=== PATIENT | female | born 1990 | race African-American/Black ===

== ENCOUNTER 2017-06-03 07:50 | Emergency (ER) | payer OTHER ==
[2017-06-03 07:55] VITALS: TEMP 98.4; BMI 37.3
[2017-06-03] MEDS ORDERED: ONDANSETRON 4 MG/2 ML VIAL IVPB ONE (08:13)
[2017-06-03] MEDS ORDERED: FAMOTIDINE 20 MG/50 ML IVPB 50 ML IVPB ONE ×2 (08:13→08:18)
[2017-06-03] MEDS ORDERED: SODIUM CHLORIDE 1,000 ML IV STA (08:13)
[2017-06-03] MEDS ORDERED: MAG HYDROX/AL HYDROX/SIMETH 30 ML UNIT-DOSE CUP PO ONE (08:13)
[2017-06-03] MEDS ORDERED: MAG HYDROX/AL HYDROX/SIMETH 30 ML UNIT-DOSE CUP ONE (08:17)
[2017-06-03] MEDS ORDERED: ONDANSETRON 4 MG/2 ML VIAL ONE (08:17)
--- NOTE | 2017-06-03 08:35 | PDOC ---
History of Present Illness <DavidEloina - Last Filed: 06/03/17 10:50> - History of Present Illness Initial Comments: 06/03/17 08:35 "The patient is a 26 year old female with past medical history of H. Pylori and GERD, who presents to the emergency department complaining of epigastric pain since last night. Patient states that pain she is experiencing is the same pain she had from her H. Pylori. She describes the pain as non-radiating, epigastric. Denies N/V. Denies F/C. Denies diarrhea/constipation. Pt states that she is currently taking an antacid for GERD, but it did not help this morning. Denies CP/SOB. She denies vaginal discharge or bleeding. She denies recent dysuria, frequency, urgency or hematuria. Pt denies any prior surgical history. Allergies: NKA " <Conor Liz - Last Filed: 06/03/17 11:01> - General Chief Complaint: Pain Stated Complaint: STOMACH PAIN Time Seen by Provider: 06/03/17 08:04 Past History <Eloina Hernandez - Last Filed: 06/03/17 10:50> - Past Medical History Anemia: No Asthma: No Cancer: No Cardiac Disorders: No Diabetes: No GI Disorders: Yes (H PYLORI) HTN: No Seizures: No Thyroid Disease: No - Immunization History Immunization Up to Date: Yes - Psycho/Social/Smoking Cessation Hx Anxiety: No Suicidal Ideation: No Smoking History: Never smoked Have you smoked in the past 12 months: No Hx Alcohol Use: Yes (social) Drug/Substance Use Hx: No Substance Use Type: None Hx Substance Use Treatment: No <Conor Liz - Last Filed: 06/03/17 11:01> - Past Medical History Allergies/Adverse Reactions: Allergies Allergy/AdvReac Type Severity Reaction Status Date / Time No Known Allergies Allergy Verified 06/03/17 07:54 Home Medications: Ambulatory Orders Ferrous Sulfate [Feosol] 325 mg PO DAILY 08/06/16 Famotidine [Pepcid -] 40 mg PO DAILY 06/03/17 Review of Systems - Review of Systems Comments:: 06/03/17 08:38 "GENERAL/CONSTITUTIONAL: +chills. No weakness. HEAD, EYES, EARS, NOSE AND THROAT: No change in vision. No ear pain or discharge. No sore throat. CARDIOVASCULAR: No chest pain RESPIRATORY: No cough, wheezing, or hemoptysis. GASTROINTESTINAL: +abdominal pain. No nausea, vomiting, diarrhea or constipation. GENITOURINARY: No dysuria, frequency, or change in urination. MUSCULOSKELETAL:No joint or muscle swelling or pain. No neck pain. SKIN: No rash NEUROLOGIC: No headache, vertigo, loss of consciousness, or change in strength/ sensation. ENDOCRINE: No increased thirst. No abnormal weight change. HEMATOLOGIC/LYMPHATIC: No anemia, easy bleeding, or history of blood clots. ALLERGIC/IMMUNOLOGIC: No hives or skin allergy." <Conor Liz - Last Filed: 06/03/17 11:01> *Physical Exam - Vital Signs Last Vital Signs Temp Pulse Resp BP Pulse Ox 98.4 F 106 H 22 151/91 100 06/03/17 07:51 06/03/17 07:51 06/03/17 07:51 06/03/17 07:51 06/03/17 07:51 <Eloina Hernandez - Last Filed: 06/03/17 10:50> - Vital Signs Last Vital Signs Temp Pulse Resp BP Pulse Ox 98.4 F 106 H 22 151/91 100 06/03/17 07:51 06/03/17 07:51 06/03/17 07:51 06/03/17 07:51 06/03/17 07:51 - Physical Exam Comments: 06/03/17 08:38 "GENERAL: Awake, alert, and fully oriented, in no acute distress HEAD: No signs of trauma EYES: PERRLA, EOMI, sclera anicteric, conjunctiva clear ENT: Auricles normal inspection, hearing grossly normal, nares patent, oropharynx clear without exudates. Moist mucosa NECK: Normal ROM, supple, no lymphadenopathy, JVD, or masses LUNGS: Breath sounds equal, clear to auscultation bilaterally. No wheezes, and no crackles HEART: Regular rate and rhythm, normal S1 and S2, no murmurs, rubs or gallops ABDOMEN: Epigastric TTP + RUQ TTP. Soft, normoactive bowel sounds. No guarding , no rebound. No masses EXTREMITIES: Normal range of motion, no edema. No clubbing or cyanosis. No cords, erythema, or tenderness NEUROLOGICAL: Cranial nerves II through XII grossly intact. Normal speech, normal gait SKIN: Warm, Dry, normal turgor, no rashes or lesions noted. " <Conor Liz - Last Filed: 06/03/17 11:01> ED Treatment Course - LABORATORY CBC & Chemistry Diagram: 06/03/17 08:45 06/03/17 08:45 - ADDITIONAL ORDERS Additional order review: Laboratory Results 06/03/17 06/03/17 06/03/17 08:45 08:40 08:40 Sodium 136 Potassium 4.0 Chloride 101 Carbon Dioxide 26 Anion Gap 9 BUN 18 D Creatinine 0.7 Creat Clearance w eGFR > 60 Random Glucose 100 Calcium 8.9 Total Bilirubin 0.4 AST 39 H ALT 26 Alkaline Phosphatase 81 Creatine Kinase Troponin I Total Protein 7.7 Albumin 3.8 Lipase 180 Urine Color Ltyellow Urine Appearance Slcloudy Urine pH 6.0 Urine Protein Negative Urine Glucose (UA) Negative Urine Ketones Negative Urine Blood Negative Urine Nitrite Negative Urine Bilirubin Negative Urine Urobilinogen Negative Urine HCG, Qual Negative 06/03/17 08:40 Sodium Potassium Chloride Carbon Dioxide Anion Gap BUN Creatinine Creat Clearance w eGFR Random Glucose Calcium Total Bilirubin AST ALT Alkaline Phosphatase Creatine Kinase 127 Troponin I < 0.02 Total Protein Albumin Lipase Urine Color Urine Appearance Urine pH Urine Protein Urine Glucose (UA) Urine Ketones Urine Blood Urine Nitrite Urine Bilirubin Urine Urobilinogen Urine HCG, Qual 06/03/17 08:45 RBC 4.90 MCV 81.2 MCHC 31.4 L RDW 13.6 MPV 9.4 Neutrophils % 56.8 Lymphocytes % 34.3 D Monocytes % 6.7 Eosinophils % 1.8 D Basophils % 0.4 - RADIOLOGY Radiograph Interpretation: 06/03/17 10:51 Chest X-Ray 2 views (PA & LAT) Impression: No evidence of active pulmonary disease Reported By: Chase Awan MD Abdomen Ultrasound Impression:Cholelithiasis and mild diffuse fatty infiltration of the liver. Reported by: Abdifatah Amado MD - Medications Given in the ED: ED Medications Discontinued Medications Generic Name Dose Route Start Last Admin Trade Name Freq PRN Reason Stop Dose Admin Al Hydroxide/Mg Hydroxide 30 ml 06/03/17 08:13 06/03/17 08:40 Mylanta Oral Suspension - PO 06/03/17 08:14 30 ml ONCE ONE Administration Famotidine/Sodium Chloride 50 mls @ 100 mls/hr 06/03/17 08:13 06/03/17 08:40 Pepcid 20 Mg Premixed Ivpb - IVPB 06/03/17 08:42 100 mls/hr ONCE ONE Administration Sodium Chloride 1,000 mls @ 1,000 mls/hr 06/03/17 08:13 06/03/17 08:40 Normal Saline - IV 06/03/17 09:12 1,000 mls/hr ASDIR STA Administration Ondansetron HCl 4 mg 06/03/17 08:13 06/03/17 08:40 Zofran Injection IVPB 06/03/17 08:14 4 mg ONCE ONE Administration <Eloina Hernandez - Last Filed: 06/03/17 10:50> - LABORATORY CBC & Chemistry Diagram: 06/03/17 08:45 06/03/17 08:45 - RADIOLOGY Radiology Studies Ordered: Category Date Time Status CHEST PA & LAT [RAD] Stat Radiology 06/03/17 08:11 Ordered ABDOMEN US [US] Stat Ultrasound 06/03/17 08:12 Ordered <Conor Liz - Last Filed: 06/03/17 11:01> Medical Decision Making - Medical Decision Making 06/03/17 08:42 26 F with epigastric pain. Likely PUD vs gastritis. Pt with mild RUQ tenderness as well. Will eval for mik. - Labs, lipase - RUQ sono - CXR - IVF, gi cocktail 06/03/17 10:57 Pt reassessed s/p GI cocktail - now reports pain is significantly better. Labs unremarkable. RUQ sono shows gallstones with no evidence of cholecystitis. Pt with no abdominal tenderness at this time, no fevers, normal LFTs. Tolerating PO. Clinically stable for DC at this time. <Conor Liz - Last Filed: 06/03/17 11:01> *DC/Admit/Observation/Transfer - Attestations Scribe Attestion: 06/03/17 10:45 Documentation prepared by Eloina Hernandez, acting as medical scientific officer for Conor Liz MD <Eloina Hernandez - Last Filed: 06/03/17 10:50> - Attestations Physician Attestion: 06/03/17 11:01 I, Dr. Conor Liz MD, attest that this document has been prepared under my direction and personally reviewed by me in its entirety. I further attest, that it accurately reflects all work, treatment, procedures and medical decision -making performed by me. <Conor Liz - Last Filed: 06/03/17 11:01> Diagnosis at time of Disposition: Epigastric pain - Discharge Dispostion Disposition: HOME Condition at time of disposition: Good - Referrals Referrals: Gamaliel Benitez MD [Staff Physician] - - Patient Instructions Printed Discharge Instructions: DI for Gallstones, DI for Peptic Ulcer Additional Instructions: Your abdominal pain was likely due to peptic ulcers. Your ultrasound showed gallstones, which could also potentially be causing your abdominal pain. You will need to follow up with your window decorator to have your gallstones further evaluated and treated. If left untreated, these may lead to infections and severe pain in the future. Print Language: YAKUT - Post Discharge Activity Work/School Note: Back to Work
[2017-06-03 08:55] LABS: BASOPHIL 0.4 % (0-2.0); EOSINOPHIL 1.8 % (0-4.5); MCH 25.5 pg (25.7-33.7); MCHC 31.4 g/dl (32.0-36.0); MEAN CELL VOLUME 81.2 fl (80-96); MEAN PLT VOLUME 9.4 fl (7.5-11.1); NEUTROPHILS 56.8 % (42.8-82.8); PLATELET COUNT 272 K/MM3 (134-434); RDW 13.6 % (11.6-15.6); WHITE BLOOD COUNT 9.3 K/mm3 (4.0-10.0)
[2017-06-03 08:57] LABS: URINE APPEARANCE SLCLOUDY; URINE BILIRUBIN NEGATIVE (NEGATIVE); URINE BLOOD NEGATIVE (NEGATIVE); URINE COLOR LTYELLOW; URINE GLUCOSE (UA) NEGATIVE (NEGATIVE); URINE KETONE NEGATIVE (NEGATIVE); URINE LEUK ESTERASE NEGATIVE (NEGATIVE); URINE NITRITE NEGATIVE (NEGATIVE); URINE PROTEIN NEGATIVE (NEGATIVE); URINE UROBILINOGEN NEGATIVE mg/dL (0.2-1.0)
[2017-06-03 09:19] LABS: ALBUMIN 3.8 g/dl (3.4-5.0); ALK PHOS 81 U/L (45-117); ANION GAP 9 (8-16); BILIRUBIN,TOTAL 0.4 mg/dL (0.2-1.0); CALCIUM 8.9 mg/dL (8.5-10.1); CO2 26 mmol/L (21-32); CREATININE 0.7 mg/dL (0.55-1.02); GLUCOSE,RANDOM 100 mg/dL (74-106); SGOT/AST 39 U/L (15-37); SGPT/ALT 26 U/L (12-78); TOT PROT 7.7 g/dl (6.4-8.2)
[2017-06-03 09:21] LABS: CPK 127 IU/L (26-192); TROPONIN I < 0.02 ng/ml (0.00-0.05)
[2017-06-03 12:00] VITALS: BP 120/46; PULSE 81
== END 2017-06-03 11:29 | disposition home or self-care (01) ==
LOC: JER 07:50
PROC: 3E033GC Introduction of Other Therapeutic Substance into Peripheral Vein, Percutaneous Approach (ICD-10-PCS; principal; 2017-06-03)
PROC: 3E033GC Introduction of Other Therapeutic Substance into Peripheral Vein, Percutaneous Approach (ICD-10-PCS; 2017-06-03)
DX: K80.20 Calculus of gallbladder without cholecystitis without obstruction (principal)
CPT/HCPCS: 36415; 71020-TC; 76700-TC; 80053; 81003; 83690; 84484; 84703; 85025; 96365; 96375; 99283-25

== ENCOUNTER 2018-05-27 05:51 | Emergency (ER) | payer OTHER ==
--- NOTE | 2018-05-27 06:00 | PDOC ---
History of Present Illness - General Chief Complaint: Pain Stated Complaint: ABD PAIN Time Seen by Provider: 05/27/18 05:55 History Source: Patient - History of Present Illness Initial Comments: 05/27/18 06:32 27 year old female with history of gastritis, H-Pylori, cholethiasis c/o severe epigastric and RUQ pain since 1 am. patient reports that prior to that she had fried chicken for dinner, ibuprofen for back pain. patient is also currently take flagyl for BV. patient reports that abdominal cramping has not imporved despite drinking tea. denies chest pain, diaphoresis, urinary symptoms 05/28/18 15:02 Past History - Past Medical History Allergies/Adverse Reactions: Allergies Allergy/AdvReac Type Severity Reaction Status Date / Time No Known Allergies Allergy Verified 06/03/17 07:54 Home Medications: Ambulatory Orders Ibuprofen [Motrin -] 400 mg PO PRN PRN 05/27/18 Pantoprazole Sodium 40 mg PO DAILY 05/27/18 Tramadol HCl 50 mg PO Q6H #10 tablet MDD 4 05/27/18 metroNIDAZOLE [Flagyl -] 500 mg PO DAILY 05/27/18 Anemia: No Asthma: No Cancer: No Cardiac Disorders: No Diabetes: No GI Disorders: Yes (H PYLORI) HTN: No Seizures: No Thyroid Disease: No - Immunization History Immunization Up to Date: Yes - Suicide/Smoking/Psychosocial Hx Smoking History: Never smoked Have you smoked in the past 12 months: No Hx Alcohol Use: Yes (social) Drug/Substance Use Hx: No Substance Use Type: None Hx Substance Use Treatment: No Review of Systems - Review of Systems Able to Perform ROS?: Yes Is the patient limited Romansh proficient: No Constitutional: No: Symptoms Reported, See HPI, Chills, Diaphoresis, Fever, Loss of Appetite, Malaise, Night Sweats, Weakness, Weight Stable, Unintentional Wgt. Loss, Unexplained wgt Loss, Other HEENTM: No: Symptoms Reported, See HPI, Eye Pain, Blurred Vision, Tearing, Recent change in vision, Double Vision, Cataracts, Ear Pain, Ocular Prothesis, Ear Discharge, Nose Pain, Nose Congestion, Tinnitus, Nose Bleeding, Hearing Loss , Throat Pain, Throat Swelling, Mouth Pain, Dental Problems, Difficulty Swallowing, Mouth Swelling, Other Cardiac (ROS): No: Symptoms Reported, See HPI, Chest Pain, Edema, Irregular Heart Rate, Lightheadedness, Palpitations, Syncope, Chest Tightness, Other ABD/GI: Yes: Nausea, Vomiting, Abdominal cramping : No: Symptoms Reported, See HPI, Burning, Dysuria, Discharge, Frequency, Flank Pain, Hematuria, Incontinence, Pain, Urgency, Testicular Mass, Testicular Swelling, Lesions, Testicular Pain, Other *Physical Exam - Vital Signs 05/27/18 06:58 Last Vital Signs Temp Pulse Resp BP Pulse Ox 97.2 F L 90 19 125/93 100 05/27/18 05:52 05/27/18 05:52 05/27/18 05:52 05/27/18 05:52 05/27/18 05:52 - Physical Exam General Appearance: Yes: Mild Distress Respiratory/Chest: positive: Lungs Clear, Normal Breath Sounds Gastrointestinal/Abdominal: positive: Normal Bowel Sounds, Tender, Soft Neurologic: positive: Fully Oriented, Alert, Normal Mood/Affect ED Treatment Course - LABORATORY CBC & Chemistry Diagram: 05/27/18 06:36 05/27/18 06:36 Progress Note - Progress Note Progress Note: A: epigastric pain P; labs US pending all results. patient signed out to Mikaela WITT *DC/Admit/Observation/Transfer Diagnosis at time of Disposition: Epigastric pain, Biliary colic, Abnormal LFTs - Discharge Dispostion Disposition: HOME Condition at time of disposition: Stable - Prescriptions Prescriptions: Tramadol HCl 50 mg PO Q6H #10 tablet MDD 4 - Referrals Referrals: Yessenia Sarabia [Primary Care Provider] - - Patient Instructions Printed Discharge Instructions: DI for Gallstones Additional Instructions: -Avoid fatty/greasy foods -Take Tramadol if needed for severe pain -Follow up with your primary care doctor on Thursday as scheduled -Return for fever (temperature over 100.4), vomiting, uncontrolled pain, or any other concerning symptoms - Post Discharge Activity Forms/Work/School Notes: Back to Work
[2018-05-27] MEDS ORDERED: ONDANSETRON *ODT* 4 MG TABLET SL ONE (06:01)
[2018-05-27 06:08] VITALS: BMI 36.2
[2018-05-27] MEDS ORDERED: SODIUM CHLORIDE 1,000 ML IV STA (06:15)
[2018-05-27] MEDS ORDERED: ONDANSETRON 4 MG/2 ML VIAL IVPUSH ONE (06:15)
[2018-05-27] MEDS ORDERED: ACETAMINOPHEN 1000 MG/100 ML VIAL (NON FORMULARY) IVPB ONE (06:18)
[2018-05-27] MEDS ORDERED: FAMOTIDINE 20 MG/50 ML IVPB 20 MG/50 ML MG IVPB ONE ×2 (06:18→06:28)
--- NOTE | 2018-05-27 06:21 | PDOC ---
*Physical Exam - Vital Signs Last Vital Signs Temp Pulse Resp BP Pulse Ox 97.2 F L 90 19 125/93 100 05/27/18 05:52 05/27/18 05:52 05/27/18 05:52 05/27/18 05:52 05/27/18 05:52 - Physical Exam Comments: 05/27/18 06:19 Vital signs within normal limits No jaundice or pallor Mild distress secondary to abdominal pain Abdomen is soft/nondistended. Tender with guarding in the epigastric and right upper quadrant, no rebound. Bowel sounds are within normal limits. No CVA tenderness Medical Decision Making - Medical Decision Making 05/27/18 06:19 Patient seen and evaluated with the nurse practitioner. I agree with the overall evaluation, assessment, and management with the following summary of visit: 27-year-old female with history of GERD/dyspepsia and gallstones diagnosed on ultrasound in 2017 presents with progressive upper abdominal pain since 1 AM, associated with 1 episode of nonbloody nonbilious emesis. Last meal was last night, had chicken and also had a dose of ibuprofen. She is currently taking Flagyl as treatment for a, otherwise no changes in her medications. Denies any recent alcohol intake. Exam as noted with epigastric and right upper quadrant tenderness with guarding 27-year-old female with upper abdominal pain and nausea/vomiting. Has history of dyspepsia/GERD and gallstones, rule out acute biliary colic versus gastritis. No evidence for cardiopulmonary process. Labs, urinalysis IV fluids, pain control, nausea control Right upper quadrant ultrasound Reassess and disposition accordingly *DC/Admit/Observation/Transfer Diagnosis at time of Disposition: Epigastric pain - Referrals - Patient Instructions - Post Discharge Activity
[2018-05-27] MEDS ORDERED: ACETAMINOPHEN INJECTION 100 ML IVPB ONE (06:28)
[2018-05-27] MEDS ORDERED: ONDANSETRON 4 MG/2 ML VIAL ONE (06:28)
[2018-05-27] MEDS ORDERED: morphine CARPU-JECT 4 MG/1 ML DISP.SYRIN IVPUSH ONE (06:30)
[2018-05-27] MEDS ORDERED: morphine SULFATE 4 MG/ML VIAL ONE (06:42)
[2018-05-27 06:51] LABS: BASO % 0.2 % (0-2.0); EOS % 0.3 % (0-4.5); HEMATOCRIT 37.1 % (32.4-45.2); HEMOGLOBIN 11.6 GM/dL (10.7-15.3); LYMPH % 16.5 % (8-40); MCH 25.3 pg (25.7-33.7); MCHC 31.1 g/dl (32.0-36.0); MEAN CELL VOLUME 81.3 fl (80-96); MEAN PLT VOLUME 9.4 fl (7.5-11.1); MONO % 8.7 % (3.8-10.2); NEUT % 74.3 % (42.8-82.8); PLATELET COUNT 240 K/MM3 (134-434); RBC 4.56 M/mm3 (3.60-5.2); RDW 14.3 % (11.6-15.6); WHITE BLOOD COUNT 9.8 K/mm3 (4.0-10.0)
[2018-05-27 07:07] LABS: ALBUMIN 3.6 g/dl (3.4-5.0); ALK PHOS 86 U/L (45-117); AMYLASE 65 U/L (25-115); ANION GAP 9 MMOL/L (8-16); BILIRUBIN,TOTAL 0.6 mg/dL (0.2-1.0); BLOOD UREA NITROGEN 17 mg/dL (7-18); CALCIUM 9.1 mg/dL (8.5-10.1); CHLORIDE 102 mmol/L (98-107); CO2 28 mmol/L (21-32); CREATININE 0.8 mg/dL (0.55-1.02); GLUCOSE,RANDOM 111 mg/dL (74-106); POTASSIUM 4.2 mmol/L (3.5-5.1); SGOT/AST 203 U/L (15-37); SGPT/ALT 91 U/L (12-78); SODIUM 139 mmol/L (136-145); TOT PROT 7.5 g/dl (6.4-8.2)
--- NOTE | 2018-05-27 07:20 | PDOC ---
*Physical Exam - Vital Signs Last Vital Signs Temp Pulse Resp BP Pulse Ox 97.2 F L 90 19 125/93 100 05/27/18 05:52 05/27/18 05:52 05/27/18 05:52 05/27/18 05:52 05/27/18 05:52 ED Treatment Course - LABORATORY CBC & Chemistry Diagram: 05/27/18 06:36 05/27/18 06:36 - ADDITIONAL ORDERS Additional order review: 05/27/18 06:36 RBC 4.56 MCV 81.3 MCHC 31.1 L RDW 14.3 MPV 9.4 Neutrophils % 74.3 D Lymphocytes % 16.5 D Monocytes % 8.7 Eosinophils % 0.3 D Basophils % 0.2 - Medications Given in the ED: ED Medications Discontinued Medications Generic Name Dose Route Start Last Admin Trade Name Freq PRN Reason Stop Dose Admin Acetaminophen 1,000 mg 05/27/18 06:18 05/27/18 06:35 Ofirmev Injection - IVPB 05/27/18 06:19 1,000 mg ONCE ONE Administration Sodium Chloride 1,000 mls @ 1,000 mls/hr 05/27/18 06:15 05/27/18 06:46 Normal Saline - IV 05/27/18 07:14 1,000 mls/hr ASDIR STA Administration Famotidine/Sodium Chloride 20 mg in 50 mls @ 100 mls/hr 05/27/18 06:18 06:36 Pepcid 20 Mg Premixed Ivpb - IVPB 05/27/18 06:47 100 mls/hr ONCE ONE Administration Morphine Sulfate 4 mg 05/27/18 06:30 05/27/18 06:47 Morphine Injection - IVPUSH 05/27/18 06:31 4 mg ONCE ONE Administration Ondansetron HCl 4 mg 05/27/18 06:01 05/27/18 06:47 Zofran Odt - SL 05/27/18 06:02 Not Given ONCE ONE Ondansetron HCl 4 mg 05/27/18 06:15 05/27/18 06:35 Zofran Injection IVPUSH 05/27/18 06:16 4 mg ONCE ONE Administration Medical Decision Making - Medical Decision Making 05/27/18 07:19 Patient received from MIRYAM Peraza. Briefly, this is a 27-year-old female with a history of H pylori (treated), gastritis, and cholelithiasis who presented with upper abdominal pain. Her pain is improved after IV Tylenol, Pepcid, and morphine. Labs are notable for WBC within normal limits at 9.8. RUQ u/s is pending. U/s shows cholelithiasis without sonographic evidence of cholecystitis. Notably, LFTs are newly elevated (AST/ALT 203/91) Patient re-assessed and pain has improved, although still with RUQ tenderness to palpation Discussed with Dr. Kay, manager international for surgery. On his recommendation, offered patient admission for HIDA scan, GI consultation. The patient declines, stating that she feels better and also that she does not have childcare. She called her primary care doctor (Dr. Etienne in [place]) in my presence, explained the situation, and secured an appointment for repeat labs and evaluation on Thursday. She lives very close to the hospital and will return if pain is uncontrolled, if she develops fever, or if she is vomiting. *DC/Admit/Observation/Transfer Diagnosis at time of Disposition: Epigastric pain, Biliary colic, Abnormal LFTs - Discharge Dispostion Disposition: HOME Condition at time of disposition: Stable Decision to Admit order: No - Referrals Referrals: Yessenia Sarabia [Primary Care Provider] - - Patient Instructions Printed Discharge Instructions: DI for Gallstones Additional Instructions: -Avoid fatty/greasy foods -Take Tramadol if needed for severe pain -Follow up with your primary care doctor on Thursday as scheduled -Return for fever (temperature over 100.4), vomiting, uncontrolled pain, or any other concerning symptoms - Post Discharge Activity Forms/Work/School Notes: Back to Work
[2018-05-27 08:39] VITALS: BP 133/83; PULSE 83
[2018-05-27 08:41] VITALS: TEMP 98.3
[2018-05-27 08:50] LABS: URINE APPEARANCE CLEAR; URINE BILIRUBIN NEGATIVE (<2.0 mg/dL); URINE COLOR YELLOW; URINE GLUCOSE (UA) NEGATIVE (NEGATIVE); URINE KETONE NEGATIVE (NEGATIVE); URINE LEUK ESTERASE NEGATIVE (NEGATIVE); URINE NITRITE NEGATIVE (NEGATIVE); URINE PROTEIN NEGATIVE (NEGATIVE); URINE UROBILINOGEN NEGATIVE mg/dL (0.2-1.0)
[2018-05-27 09:10] LABS: HCG,QUALITATIVE URINE NEGATIVE
== END 2018-05-27 10:38 | disposition home or self-care (01) ==
LOC: JER 05:51
PROC: 3E0337Z Introduction of Electrolytic and Water Balance Substance into Peripheral Vein, Percutaneous Approach (ICD-10-PCS; principal; 2018-05-27)
PROC: 3E033GC Introduction of Other Therapeutic Substance into Peripheral Vein, Percutaneous Approach (ICD-10-PCS; 2018-05-27)
PROC: 3E033GC Introduction of Other Therapeutic Substance into Peripheral Vein, Percutaneous Approach (ICD-10-PCS; 2018-05-27)
PROC: 3E033NZ Introduction of Analgesics, Hypnotics, Sedatives into Peripheral Vein, Percutaneous Approach (ICD-10-PCS; 2018-05-27)
DX: K80.20 Calculus of gallbladder without cholecystitis without obstruction (principal); Z87.19 Personal history of other diseases of the digestive system; B96.81 Helicobacter pylori [H. pylori] as the cause of diseases classified elsewhere; R94.5 Abnormal results of liver function studies
CPT/HCPCS: 36415; 76705-TC; 80053; 81003; 82150; 83690; 84703; 85025; 99283-25; J0131; J7030

== ENCOUNTER 2018-06-25 08:41 | Day surgery (SDC) | payer OTHER ==
[2018-06-24 13:00] VITALS: BMI 35.1
[2018-06-25] MEDS ORDERED: fentaNYL CITRATE 250 MCG/5 ML VIAL ONE (09:44)
[2018-06-25] MEDS ORDERED: MIDAZOLAM HCL 2 MG/2 ML SINGLE DOSE VIAL ONE (09:45)
[2018-06-25] MEDS ORDERED: SUCCINYLCHOLINE CHLORIDE 200 MG/10 ML VIAL ONE (09:45)
[2018-06-25] MEDS ORDERED: DEXAMETHASONE SOD PHOSPHATE 4 MG/1 ML VIAL ONE (09:46)
[2018-06-25] MEDS ORDERED: LIDOCAINE HCL/PF 2% SDV 5ML VIAL ONE (09:46)
[2018-06-25] MEDS ORDERED: BUPIVACAINE HCL/PF 0.5% (5MG/ML) 10 ML VIAL ONE (10:09)
--- NOTE | 2018-06-25 10:10 | HP ---
History & Physical Update - History History: No Change - Physical Physical: No Change - Assessment Assessment: No Change - Plan Plan: No Change (Patient is scheduled to have laparoscopic cholecystectomy, possible open.)
[2018-06-25] MEDS ORDERED: ceFAZolin SODIUM 1 GM VIAL IVPB ONE (10:35)
[2018-06-25] MEDS ORDERED: ceFAZolin SODIUM 1 GM VIAL ONE (10:37)
[2018-06-25] MEDS ORDERED: oxyCODONE HCL 5 MG TABLET PO PRN ×2 (10:40)
[2018-06-25] MEDS ORDERED: ONDANSETRON 4 MG/2 ML VIAL IVPUSH PRN (10:40)
[2018-06-25] MEDS ORDERED: LACTATED RINGERS SOLUTION 1,000 ML IV SCH (10:45)
[2018-06-25] MEDS ORDERED: BUPIVACAINE HCL/PF (5 MG/ML) 30 ML VIAL IJ ONE ×2 (11:08→11:20)
[2018-06-25] MEDS ORDERED: NEOSTIGMINE METHYLSULFATE 0.5 MG/ML - 10 ML MDV ONE (11:17)
[2018-06-25] MEDS ORDERED: GLYCOPYRROLATE 0.2 MG/1 ML VIAL ONE (11:17)
--- NOTE | 2018-06-25 11:44 | OP ---
Operative Note - Note: Operative Date: 06/25/18 Pre-Operative Diagnosis: Cholelithiasis, cholecystitis. Operation: Laparoscopic cholecystectomy, lysis of omental adhesions. Findings: Cholelithiasis, omental adhesions wrapped around the gallbladder. Post-Operative Diagnosis: Other (Cholelithiasis with chronic cholecystitis, omental adhesions.) Surgeon: Naya Kay Entertainer Or Variety Artist: Conor Mata Anesthesia: General Specimens Removed: Gallbladder. Estimated Blood Loss (mls): 5 Operative Report Dictated: Yes
[2018-06-25] MEDS ORDERED: MIDAZOLAM HCL 5 MG/1 ML Single Dose Vial ONE (12:03)
[2018-06-25] MEDS ORDERED: MIDAZOLAM HCL 2 MG/2 ML SINGLE DOSE VIAL IVPUSH ONE (12:08)
[2018-06-25] MEDS ORDERED: ONDANSETRON 4 MG/2 ML VIAL ONE (13:22)
[2018-06-25 16:01] VITALS: BP 121/61; PULSE 88; TEMP 97.5
--- NOTE | 2018-06-25 17:07 | OP ---
DATE OF OPERATION: 06/25/2018 PREOPERATIVE DIAGNOSES: Cholelithiasis/cholecystitis. POSTOPERATIVE DIAGNOSES: Cholelithiasis/cholecystitis and omental adhesions. OPERATIVE PROCEDURE: Laparoscopic cholecystectomy, lysis of omental adhesions. SURGEON: Angelina Kay MD VP ACCOUNT DIRECTOR: Conor Mata MD ANESTHESIA: General anesthesia. OPERATIVE DESCRIPTION: This 27-year-old woman presented with abdominal pain. Patient was brought in electively for laparoscopic cholecystectomy. Consent was obtained, and risks, benefits, and complications have been discussed with the patient. Patient was brought to the operating room. General anesthesia was administered. Patient was given a g of Ancef. The abdomen painted and draped. Timeout was called. Incision was made in the infraumbilical portion of the umbilicus which was deepened through the skin, subcutaneous tissue, and the linea alba. The peritoneum was incised, and a 10-12 mm laparoscopic trocar of the Hasan type was introduced into the abdominal cavity. The abdomen was inflated with carbon dioxide at 6 L per minute at maximum intraabdominal pressure at 15 mmHg. A 10-mm camera was introduced into the abdominal cavity. Under direct vision, two 5-mm trocars were inserted in the right upper quadrant of the abdomen, one along midclavicular line and another along the anterior axillary line. These were introduced 2-3 fingers below the costal margin. These were noted entering the abdominal cavity under direct vision with the camera. A third trocar 5-mm was inserted in the midline in the subxiphoid area to the right of the midline. This was noted entering the abdominal cavity to the right of the falciform ligament. The gallbladder was then visualized. The fundus of the gallbladder was then grasped with a grasper through the lateral port site. This was retracted cephalad. The omentum was adherent circumferentially to the gallbladder all the way to the fundus of the gallbladder. This was carefully lysed with sharp and blunt dissection as well as using electrocautery until the infundibulum of the gallbladder was exposed. Once the infundibulum of the gallbladder was exposed, this was grasped with help of grasper through the medial 5-mm port and retracted inferiorly and laterally thus exposing Calot's triangle. With sharp and blunt dissection with the Endoshears in subxiphoid port, the cystic duct and the cystic artery was isolated circumferentially. These were then divided and clipped. The peritoneal reflection on either side of the gallbladder was then incised, the gallbladder dissected out of the gallbladder bed all the way from the cystic duct to the infundibulum of the gallbladder. Hemostasis was achieved as the dissection proceeded. The cholecystectomy was thus accomplished. The camera was then switched to the subxiphoid port, and the 5-mm camera and EndoCatch were introduced through the umbilical port. Gallbladder was placed into the EndoCatch and retrieved out of the abdominal cavity. Gallbladder had 2 small stones within the gallbladder. The specimen was sent to Pathology. The gallbladder fossa was then thoroughly irrigated with normal saline. All fluid return was clear. There was no cystic duct leak and no bile leak and no bleeding. The gallbladder bed was cleaned, and hemostasis was satisfactory. The instruments were then withdrawn under direct vision. The linea alba in the midline was then approximated with interrupted and [id number] 2-0 Vicryl sutures. Marcaine 0.5% was injected into the wound. The skin was approximated with buried, interrupted 4-0 Monocryl sutures. Estimated blood loss was 5 mL. Dermabond was applied across the skin edges. Patient tolerated the procedure well, was extubated, and returned to the recovery room in satisfactory and stable condition. Merry BRINK/[id number]
--- NOTE | 2018-06-28 16:44 | PATH ---
Surgical Pathology Report Patient Name: ADRIA SARGENT [facility]. Rec. #: [id number] /Age/Gender: 1990 (Age: 27) / F Account: [id number] Location: [facility] SURGICAL Taken: 06/25/2018 Received: 06/25/2018 Reported: 06/28/2018 Physicians: Rocío Kay M.D. Specimen(s) Received GALLBLADDER Clinical History Calculus of gallbladder Final Diagnosis GALLBLADDER, CHOLECYSTECTOMY: CHRONIC CHOLECYSTITIS AND CHOLELITHIASIS. Electronically Signed eBnja Deshpande M.D. Gross Description Received in formalin, labeled "gallbladder," is a 6.7 x 2.7 x 1.6 cm. gallbladder with a 0.2 cm. in length portion of cystic duct attached. The outer surface is reddy-pink and varies from smooth to shaggy. The lumen contains reddy, tenacious bile as well as abundant yellow, irregular to spherical cholelith ranging from 0.4-0.5 cm in greatest dimension. The mucosa is reddy and velvety. The wall of the gallbladder measures 0.1 cm. in thickness. Medical Research Tech sections are submitted in one cassette. /06/25/2018 saudi06/25/2018
== END 2018-06-25 15:50 | disposition home or self-care (01) ==
LOC: JASU-SURG 08:41
PROVIDERS: ATTEND Specialist
PROC: 0FT44ZZ Resection of Gallbladder, Percutaneous Endoscopic Approach (ICD-10-PCS; principal; 2018-06-25 10:00)
DX: K80.10 Calculus of gallbladder with chronic cholecystitis without obstruction (principal); K66.0 Peritoneal adhesions (postprocedural) (postinfection)
CPT/HCPCS: 84703; 88304-TC; 94760

== ENCOUNTER 2018-11-21 13:54 | Emergency (ER) | payer OTHER ==
[2018-11-21 14:01] VITALS: BP 122/72; PULSE 89; TEMP 98.8; BMI 34.9
[2018-11-21] MEDS ORDERED: IBUPROFEN 600 MG TABLET (FP) PO ONE ×2 (14:43→14:55)
[2018-11-21] MEDS ORDERED: AMOX TR/POT CLAV 875MG/125MG TABLETS (FP) PO ONE (14:43)
[2018-11-21] MEDS ORDERED: PSEUDOEPHEDRINE HCL 60 MG TABLET PO ONE (14:45)
--- NOTE | 2018-11-21 14:53 | PDOC ---
History of Present Illness - General Chief Complaint: Ear Problem Stated Complaint: RIGHT EAR PAIN Time Seen by Provider: 11/21/18 14:13 History Source: Patient Exam Limitations: No Limitations - History of Present Illness Initial Comments: 11/21/18 14:45 27 yo F w/ a h/o migraines comes in c/o 2 days of a progressively worsening R temporal headache, associated with photosensitivity and feels like her migraines. She has not taken any meds for her headache. Also c/o 2 days of R sided earache and nose swelling. She had 2-3 comedones on her nose, popped them and they got red and swollen. NO other complaints today, no fever/chills, no NVD , no change in appetite, no decrease in urination, no neck pain, no neck stiffness, no known sick contacts, no recent travel. Past History - Past Medical History Allergies/Adverse Reactions: Allergies Allergy/AdvReac Type Severity Reaction Status Date / Time No Known Allergies Allergy Verified 11/21/18 14:02 Home Medications: Ambulatory Orders Pantoprazole Sodium 40 mg PO DAILY 05/27/18 Amox-Tr/K Cl [Augmentin - 875Mg Tablet] 1 tab PO BID 10 Days #20 tablet Ibuprofen 600 mg PO TID 3 Days #15 tablet 11/21/18 Mupirocin Ointment [Bactroban 2% Ointment -] 1 applic TP TID 7 Days #1 applic Pseudoephedrine HCl [Sudafed] 60 mg PO TID 3 Days #15 tablet 11/21/18 Anemia: Yes Asthma: No Cancer: No Cardiac Disorders: No COPD: No Diabetes: No GI Disorders: Yes (H PYLORI) HTN: No Seizures: No Thyroid Disease: No - Surgical History Cholecystectomy: Yes - Immunization History Immunization Up to Date: Yes - Suicide/Smoking/Psychosocial Hx Smoking History: Never smoked Have you smoked in the past 12 months: No Hx Alcohol Use: Yes (social) Drug/Substance Use Hx: No Substance Use Type: None Hx Substance Use Treatment: No Review of Systems - Review of Systems Able to Perform ROS?: Yes Constitutional: No: Chills, Fever, Malaise, Night Sweats HEENTM: No: Eye Pain, Blurred Vision, Recent change in vision, Double Vision, Throat Pain Respiratory: No: Cough, Shortness of Breath Cardiac (ROS): No: Chest Pain, Palpitations, Chest Tightness ABD/GI: No: Diarrhea, Nausea, Vomiting, Abdominal cramping : No: Dysuria, Hematuria Musculoskeletal: No: Back Pain Integumentary: No: Rash Neurological: Yes: Headache. No: Numbness, Dizziness Psychiatric: No: Change in Appetite Endocrine: No: Unexplained Weight Loss *Physical Exam - Vital Signs Last Vital Signs Temp Pulse Resp BP Pulse Ox 98.8 F 89 18 122/72 99 11/21/18 13:59 11/21/18 13:59 11/21/18 13:59 11/21/18 13:59 11/21/18 13:59 - Physical Exam General Appearance: Yes: Nourished. No: Apparent Distress HEENT: positive: [place] DEILA, Normal Voice, Pharynx Normal, TM Dull (R TM dull with clear effusion behind TM. R ear with preauricular tender lymphadenopathy. No mastoid swelling/erythema/tenderness, no clinical signs of mastoiditis. ), Other (Nose with 2 skin lesions with mild surrounding erythema and tenderness, no fluctuance, no induration. NO septal hematoma, no erythema/discharge/lesion inside nostrils, no signs of infection inside the nose.). negative: Pale Conjunctivae, Photophobia (mild photosensitivity), Scleral Icterus (R), Scleral Icterus (L), Pharyngeal Erythema, Tonsillar Exudate, Tonsillar Erythema, Nasal Congestion, TM Bulging, TM Erythema Neck: positive: Supple. negative: Decreased range of motion, Tender midline Respiratory/Chest: positive: Lungs Clear, Normal Breath Sounds. negative: Respiratory Distress, Accessory Muscle Use, Wheezing Cardiovascular: positive: Regular Rhythm, Regular Rate Comments:: 11/21/18 15:12 Neuro exam: A+Ox3 (person, place, time), normal sensorium. Visual salazar: full to confrontation. Pupils: equal, round, and reactive to light. EOM: intact and smooth pursuit. No nystagmus. Sensation: V1, V2, and V3 normal b/l Facial strength: muscles of mastication, facial expression, shoulder shrug, and head turn normal. Hearing: grossly intact b/l Mouth: tongue protrudes midline and moves Left/Right equal b/l. Uvula rises symmetrically. Motor: UE and LE 5/5 diffusely. Sensation: light touch and pinprick WNL. Cerebellum: [id number]-ohetip normal without dysmetria or intention tremor. [id number] wnl. No dysdiadodyskinesia. Gait: unassisted, steady, Romberg negative. No atalgia, difficulty in ambulation or ataxia. Gastrointestinal/Abdominal: positive: Normal Bowel Sounds, Soft. negative: Tender Musculoskeletal: positive: Normal Inspection. negative: CVA Tenderness, Decreased Range of Motion Extremity: positive: Normal Capillary Refill, Normal Inspection, Normal Range of Motion. negative: Tender, Pedal Edema Integumentary: positive: Normal Color, Dry. negative: Jaundice, Rash Neurologic: positive: Alert, Other Moderate Sedation - Procedure Monitoring Vital Signs: Procedure Monitoring Vital Signs Temperature 98.8 F 11/21/18 13:59 Pulse Rate 89 11/21/18 13:59 Respiratory Rate 18 11/21/18 13:59 Blood Pressure 122/72 11/21/18 13:59 O2 Sat by Pulse Oximetry (%) 99 11/21/18 13:59 Medical Decision Making - Medical Decision Making 11/21/18 15:13 27 yo F w/ very mild external nose cellulitis due to open sores, also w/ dull TM with effusion. WIll treat with augmentin, sudafed, bactroban. WIll give ibuprofen for migraines, will have pt follow up with ENT and derm and PMD Neuro exam WNL Return for worsening/concerning symptoms Pt verbalizes understanding and agrees with plan 11/21/18 15:16 *DC/Admit/Observation/Transfer Diagnosis at time of Disposition: Ear infection, Cellulitis of nose, external - Discharge Dispostion Disposition: HOME Condition at time of disposition: Stable - Referrals Referrals: Yessenia Sarabia [Primary Care Provider] - Marisabel Pearce MD [Staff Physician] - Esequiel Jane MD [Staff Physician] - - Patient Instructions Printed Discharge Instructions: Middle Ear Infection, DI for Cellulitis -- Adult Additional Instructions: FOllow up with the dermatology Dr. Pearce, for your nose. Also follow up with the ear doctor, Dr. Jane for your ear symptoms. Take all medication as prescribed. Return for worsening/concerning symptoms - Post Discharge Activity
[2018-11-21] MEDS ORDERED: AMOX TR/POT CLAV 875MG/125MG TABLETS (FP) ONE (14:55)
[2018-11-21] MEDS ORDERED: PSEUDOEPHEDRINE HCL 60 MG TABLET ONE (14:55)
== END 2018-11-21 15:29 | disposition home or self-care (01) ==
LOC: JERFT 13:54
DX: J34.0 Abscess, furuncle and carbuncle of nose (principal); G43.909 Migraine, unspecified, not intractable, without status migrainosus; H65.191 Other acute nonsuppurative otitis media, right ear
CPT/HCPCS: 99281-25

== ENCOUNTER 2018-11-26 00:48 | Emergency (ER) | payer OTHER ==
[2018-11-26 01:35] VITALS: BP 127/80; PULSE 96; TEMP 98.6; BMI 34.3
--- NOTE | 2018-11-26 01:37 | PDOC ---
History of Present Illness - General Chief Complaint: Allergic Reaction Stated Complaint: ALLERGIC REACTION Time Seen by Provider: 11/26/18 01:37 History Source: Patient Exam Limitations: No Limitations - History of Present Illness Initial Comments: 11/26/18 01:43 27 year old female with PMH fish allergy presented to ED for allergic reaction to eating crabs. Pt stated after eating crabs she developed a facial rash, shortness of breath and itching in her throat. Pt stated she took Benadryl and her symptoms have improved, currently she complains of mild throat itching. Pt denied current shortness of breath, nausea, vomiting, chest pain. Past History - Past Medical History Allergies/Adverse Reactions: Allergies Allergy/AdvReac Type Severity Reaction Status Date / Time No Known Allergies Allergy Verified 11/26/18 01:28 Home Medications: Ambulatory Orders Pantoprazole Sodium 40 mg PO DAILY 05/27/18 Amox-Tr/K Cl [Augmentin - 875Mg Tablet] 1 tab PO BID 10 Days #20 tablet Ibuprofen 600 mg PO TID 3 Days #15 tablet 11/21/18 Mupirocin Ointment [Bactroban 2% Ointment -] 1 applic TP TID 7 Days #1 applic Pseudoephedrine HCl [Sudafed] 60 mg PO TID 3 Days #15 tablet 11/21/18 Epinephrine [Epipen 2-Juan Pablo] 0.3 mg IJ ASDIR #1 kit 11/26/18 Anemia: Yes Asthma: No Cancer: No Cardiac Disorders: No COPD: No Diabetes: No GI Disorders: Yes (H PYLORI) HTN: No Seizures: No Thyroid Disease: No - Surgical History Cholecystectomy: Yes - Immunization History Immunization Up to Date: Yes - Suicide/Smoking/Psychosocial Hx Smoking History: Never smoked Have you smoked in the past 12 months: No Information on smoking cessation initiated: No Hx Alcohol Use: No Drug/Substance Use Hx: No Substance Use Type: None Hx Substance Use Treatment: No Review of Systems - Review of Systems Able to Perform ROS?: Yes Comments:: 11/26/18 01:44 General: denied fever, chills, generalized weakness. HEENT: admitted to itchy throat. denied sore throat, rhinorrhea, ear pain. Heart: denied chest pain, palpitations, syncope, diaphoresis. Respiratory: admitted to shortness of breath. denied cough, sputum production, hemoptysis. Abdomen: denied abdominal pain, nausea, vomiting, diarrhea, constipation, blood in stool. : denied dysuria, increased urinary frequency, hematuria, urinary incontinence , flank pain. Back: denied back pain. Musculoskeletal: denied joint pain, muscle pain, joint swelling. Neurological: denied headache, dizziness, numbness, tingling, weakness. Skin: admitted to rash. denied laceration, abrasion. *Physical Exam - Vital Signs Last Vital Signs Temp Pulse Resp BP Pulse Ox 98.6 F 96 H 18 127/80 99 11/26/18 01:32 11/26/18 01:32 11/26/18 01:32 11/26/18 01:32 11/26/18 01:32 - Physical Exam Comments: 11/26/18 01:45 Constitutional: Well-nourished, Well-developed, appearing stated age. HEENT: head is normocephalic, atraumatic. EOMI. PERRLA. uvula nonswollen. airway patent. Neck: supple. Full ROM. Heart: regular rhythm. no murmurs, rubs or gallops. Lungs: clear to auscultation bilaterally. no crackles, rhonchi or wheezing. no stridor. speaking full sentences. Abdomen: soft, nontender. normal bowel sounds. no rebound, guarding, masses. Extremities: peripheral pulses intact. no lower extremity edema. Neurological: CN 2-12 grossly intact. moves all four extremities. Psych: awake, alert, oriented x3. follows commands. answers questions appropriately. Skin: no rash to face. Moderate Sedation - Procedure Monitoring Vital Signs: Procedure Monitoring Vital Signs Temperature 98.6 F 11/26/18 01:32 Pulse Rate 96 H 11/26/18 01:32 Respiratory Rate 18 11/26/18 01:32 Blood Pressure 127/80 11/26/18 01:32 O2 Sat by Pulse Oximetry (%) 99 11/26/18 01:32 Medical Decision Making - Medical Decision Making 11/26/18 01:46 27 year old female with above PMH presented to ED for allergic reaction to eating crabs. Symptoms have improved since pt took Benadryl prior to arrival. Initial Vital Signs Temp Pulse Resp BP Pulse Ox 98.6 F 96 H 18 127/80 99 11/26/18 01:32 11/26/18 01:32 03/08/19 01:32 11/26/18 01:32 11/26/18 01:32 Afebrile. No tachycardia. No tachypnea. No hypotension. No hypoxia on room air. Labs ordered: none Imaging ordered: none Medications ordered: none Pt appears well, no airway swelling, no wheezing, improved rash, no vomiting. Pt requesting to go home. Pt educated on how to use Epi Pen Pt discharged. Discharge medication: epipens *DC/Admit/Observation/Transfer Diagnosis at time of Disposition: Allergic reaction - Prescriptions Prescriptions: Epinephrine [Epipen 2-Juan Pablo] 0.3 mg IJ ASDIR #1 kit - Referrals - Patient Instructions Printed Discharge Instructions: DI for Food Allergy Additional Instructions: You were seen today for an allergic reaction. Continue taking benadryl over the counter for your symptoms, take as advised on label. Follow up with your primary care doctor in 1-2 days. Return to the Emergency Department for chest pain, shortness of breath, swelling of throat, vomiting or any other new, worsening or concerning symptoms. I have sent a prescription to your pharmacy for Epipens. Pick them up immediately and always carry one with you wherever you go. - Post Discharge Activity Forms/Work/School Notes: Back to Work
--- NOTE | 2018-11-26 01:43 | PDOC ---
Attending Attestation - Resident Resident Name: Sherry Chun - ED Attending Attestation I have performed the following: I have examined & evaluated the patient, The case was reviewed & discussed with the resident, I agree w/resident's findings & plan, Exceptions are as noted - HPI HPI: 11/26/18 01:52 27F pmh of fish allergy here after reaction when eating crab. Pt states that she ate some crab earlier in the evening and started to feel tingling in her throat and noted hives on her face and upper extremities. Patient took 50mg of benadryl at approximately 11pm with improvement of symptoms. No sob, coughing, lightheadedness. Denies any current complaints. - Physicial Exam PE: 11/26/18 01:53 Agree with exam as documented by resident NAD, AOx3, normal wob Oropharynx unremarkable No wheezing, LCTAB Skin no rash - Medical Decision Making 11/26/18 01:55 Likely resolved hypersensitivity reaction to shellfish DC with rx for epipen
== END 2018-11-26 02:13 | disposition home or self-care (01) ==
LOC: JER 00:48
DX: T78.1XXA Other adverse food reactions, not elsewhere classified, initial encounter (principal); L50.0 Allergic urticaria; Z91.013 Allergy to seafood
CPT/HCPCS: 99282-25